=== PATIENT | female | born 1950 | race Caucasian/White ===

== ENCOUNTER → 2025-01-07 10:24 | Outpatient (REF) | payer OTHER, SELFPAY | LOC: HWRAD 10:24 | PROVIDERS: ATTENDING PHYSICIAN Internal Medicine | DX: M54.50 Low back pain, unspecified (principal); Z96.641 Presence of right artificial hip joint | CPT/HCPCS: 72110; 73502 ==

== ENCOUNTER → 2025-10-01 10:39 | Outpatient (REF) | payer OTHER, SELFPAY | LOC: HWRAD 10:39 | PROVIDERS: ATTENDING PHYSICIAN Internal Medicine | DX: M81.0 Age-related osteoporosis without current pathological fracture (principal) | CPT/HCPCS: 77080 ==